=== PATIENT | male | born 1995 | race African-American/Black ===

== ENCOUNTER 2018-10-04 22:44 | Emergency (ER) | payer SELFPAY ==
[~2018-10-04] VITALS: Ht 170.1 cm; Wt 76.2 kg
--- NOTE | ~2018-10-04 | EKG ---
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
[~2018-10-04 22:44] MED LIST: MOTRIN400 MG PO; MOTRIN800 MG PO; NKHM; ZITHROMAX250 MG PO
[2018-10-04 23:19] LABS: BASO % 0.2 % (0.0-1.0); EOS # 0.1 10*3/uL (0.0-0.4); EOS % 0.3 % (1.0-4.0); HEMOGLOBIN 15.4 g/dl (14.0-18.0); LYMPH # 0.9 10*3/uL (1.3-4.4); LYMPH % 6.4 % (27.0-41.0); MEAN CELL VOLUME 83.2 fl (80.0-94.0); MEAN CORPUSCULAR HGB 28.5 pg (27.0-31.0); MEAN CORPUSCULAR HGB CONC 34.2 g/dl (33.0-37.0); MEAN PLATELET VOLUME 10.9 fl (9.6-12.3); MONO # 0.9 10*3/uL (0.1-1.0); NEUT # 12.7 10*3/uL (2.3-7.9); NEUT % 86.8 % (47.0-73.0); PLATELET COUNT AUTOMATED 286 10*3/uL (130-400); RED BLOOD COUNT 5.41 10*6/uL (4.50-5.90); RED CELL DISTRI WIDTH 12.4 % (0-14.5); WHITE BLOOD COUNT 14.7 10*3/uL (4.8-10.8)
[2018-10-04 23:30] LABS: ACT PARTIAL THROMBO TIME 22.1 SECONDS (20.8-31.5)
[2018-10-04 23:46] LABS: ALBUMIN 4.6 gm/dl (3.1-4.5); ALKALINE PHOSPHATASE 68 U/L (45-117); BUN 12 mg/dl (7-24); CHLORIDE 106 mmol/L (98-107); CREATININE 1.26 mg/dL (0.70-1.30); SGOT/AST 27 IU/L (3-35); SGPT/ALT 32 U/L (12-78); SODIUM 141 mmol/L (136-145); TOTAL PROTEIN 8.5 gm/dL (6.4-8.2)
[2018-10-04 23:47] LABS: POTASSIUM 3.9 mmol/L (3.5-5.1); TROPONIN I < 0.015 ng/ml (<0.045)
[2018-10-05] MEDS ORDERED: INDOMETHACIN50 MG PO (00:13)
== END 2018-10-05 00:45 | disposition home or self-care (01) ==
LOC: ED 22:44
PROVIDERS: Emergency Medicine Emergency Medical Services
DX: I31.9 Disease of pericardium, unspecified (principal); F17.210 Nicotine dependence, cigarettes, uncomplicated

== ENCOUNTER 2018-10-10 23:39 | Emergency (ER) | payer SELFPAY ==
[~2018-10-10] VITALS: Ht 172.7 cm; Wt 76.2 kg
--- NOTE | ~2018-10-10 | EKG ---
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 Alicea : 1995 Requested By: FADUMO SAHU Order Number: [id number] Reading MD: Isai Whitney MD Measurements Intervals [place] Rate: 102 P: 0 MS: 84 QRS: 82 QRSD: 80 T: 37 QT: 343 QTc: 447 Interpretive Statements Sinus tachycardia Left atrial enlargement ST elev, probable normal early repol pattern Baseline wander in lead(s) V3,V5 Compared to ECG 10/04/2018 22:50:11 Sinus rhythm no longer present ST (T wave) deviation still present Electronically Signed On 10-11-2018 8:48:19 PST by Isai Whitney MD CM:EKGRPT:ELECTROCARDIOGRAM REPORT [id number] FADUMO TEIXEIRA DRAFT REPORT FADUMO SAHU MD
[~2018-10-10 23:39] MED LIST changes: +INDOMETHACIN50 MG PO
[2018-10-11 00:33] LABS: BASO % 0.5 % (0.0-1.0); EOS % 0.5 % (1.0-4.0); HEMATOCRIT 39.2 % (42.0-52.0); HEMOGLOBIN 13.6 g/dl (14.0-18.0); LYMPH # 2.7 10*3/uL (1.3-4.4); LYMPH % 31.6 % (27.0-41.0); MEAN CORPUSCULAR HGB 28.5 pg (27.0-31.0); MEAN CORPUSCULAR HGB CONC 34.7 g/dl (33.0-37.0); MEAN PLATELET VOLUME 10.5 fl (9.6-12.3); MONO # 0.6 10*3/uL (0.1-1.0); MONO % 7.6 % (3.0-9.0); NEUT % 59.2 % (47.0-73.0); PLATELET COUNT AUTOMATED 339 10*3/uL (130-400); RED BLOOD COUNT 4.78 10*6/uL (4.50-5.90); RED CELL DISTRI WIDTH 12.3 % (0-14.5); WHITE BLOOD COUNT 8.5 10*3/uL (4.8-10.8)
[2018-10-11 00:52] LABS: ALBUMIN 4.3 gm/dl (3.1-4.5); ALKALINE PHOSPHATASE 62 U/L (45-117); BUN 14 mg/dl (7-24); CHLORIDE 107 mmol/L (98-107); CREATININE 1.42 mg/dL (0.70-1.30); POTASSIUM 4.1 mmol/L (3.5-5.1); SGOT/AST 34 IU/L (3-35); SGPT/ALT 30 U/L (12-78); SODIUM 140 mmol/L (136-145); TOTAL PROTEIN 7.9 gm/dL (6.4-8.2)
[2018-10-11 00:55] LABS: ACETAMINOPHEN (TYLENOL) < 2.0 ug/ml (10-30); ETHYL ALCOHOL < 3.0 mg/dl (<3)
[2018-10-11 02:28] LABS: BILIRUBIN NEGATIVE (NEGATIVE); BLOOD TRACE-INTACT (NEGATIVE); CLARITY CLEAR (CLEAR); COLOR YELLOW (YELLOW); GLUCOSE NEGATIVE (NEGATIVE); KETONE 1+ (NEGATIVE); LEUKO ESTERASE NEGATIVE (NEGATIVE); NITRITE NEGATIVE (NEGATIVE); SPECIFIC GRAVITY >= 1.030 (1.005-1.030); UROBILINOGEN 0.2 E.U./dl (0.2-1.0)
[2018-10-11 02:36] LABS: WBC 0-2 wbc/hpf (0-5)
[2018-10-11 02:39] LABS: URINE AMPHETAMINES < 1000 (1000ng/ml); URINE BARBITURATES < 200 (200ng/ml); URINE BENZODIAZEPINES < 200 (200ng/ml); URINE CANNABINOIDS (THC) > 50 (50ng/ml); URINE COCAINE > 300 (300ng/ml); URINE METHADONE < 300 (300ng/ml); URINE OPIATES < 300 (300ng/ml)
[2018-10-11 02:42] LABS: URINE PHENCYCLIDINE < 25 (25ng/ml)
== END 2018-10-11 06:39 | disposition short-term general hospital (02) ==
LOC: ED 23:39
PROVIDERS: Emergency Medicine Emergency Medical Services
DX: R56.9 Unspecified convulsions (principal); F19.10 Other psychoactive substance abuse, uncomplicated; R00.0 Tachycardia, unspecified

== ENCOUNTER 2019-04-25 17:03 | Inpatient (IN) | payer SELFPAY ==
[~2019-04-25] VITALS: Ht 170.1 cm; Wt 65.0 kg
[2019-04-25 17:07] VITALS: BP 104/49
--- NOTE | 2019-04-25 17:44 | NUR ---
THE PT REFUSED AN IV AND AFTER 2 TRIES HE IS REFUSING BLOOD WORK. ANTWAN [place] IS NOTIFIED
--- NOTE | 2019-04-25 17:46 | NUR ---
THE PT WENT TO CT VIA CART
[2019-04-25 18:30] LABS: BASO % 0.4 % (0.0-1.0); EOS # 0.1 10*3/uL (0.0-0.4); HEMOGLOBIN 14.3 g/dl (14.0-18.0); LYMPH # 1.7 10*3/uL (1.3-4.4); LYMPH % 21.3 % (27.0-41.0); MEAN CELL VOLUME 81.2 fl (80.0-94.0); MEAN CORPUSCULAR HGB 28.3 pg (27.0-31.0); MEAN CORPUSCULAR HGB CONC 34.9 g/dl (33.0-37.0); MONO # 0.6 10*3/uL (0.1-1.0); MONO % 7.2 % (3.0-9.0); NEUT # 5.6 10*3/uL (2.3-7.9); PLATELET COUNT AUTOMATED 332 10*3/uL (130-400); RED BLOOD COUNT 5.05 10*6/uL (4.50-5.90); RED CELL DISTRI WIDTH 12.7 % (0-14.5)
[2019-04-25 18:38] VITALS: BP 119/77
[2019-04-25 18:45] LABS: ACT PARTIAL THROMBO TIME 22.9 SECONDS (20.0-32.1); INTERNATIONAL NORM RATIO 0.9 (2.0-3.5)
[2019-04-25 18:49] LABS: ALBUMIN 4.7 gm/dl (3.1-4.5); ALKALINE PHOSPHATASE 71 U/L (45-117); BUN 17 mg/dl (7-24); CHLORIDE 106 mmol/L (98-107); CREATININE 1.25 mg/dL (0.70-1.30); POTASSIUM 4.8 mmol/L (3.5-5.1); SGOT/AST 27 IU/L (3-35); SGPT/ALT 27 U/L (12-78); SODIUM 140 mmol/L (136-145); TOTAL PROTEIN 8.4 gm/dL (6.4-8.2)
[2019-04-25 18:51] LABS: TROPONIN I < 0.015 ng/ml (<0.045)
[2019-04-25 19:41] VITALS: BP 102/66
[2019-04-25 20:28] VITALS: BP 100/62
--- NOTE | 2019-04-25 20:42 | NUR ---
THE PATIENT AND HIS FATHER WERE GIVEN GINERALE TO DRINK.
--- NOTE | 2019-04-25 21:15 | NUR ---
THE PT WAS NOT IN ANY PAIN AND DID NOT WANT THE MOTRIN.
[2019-04-25 22:03] VITALS: BP 106/69
--- NOTE | 2019-04-25 22:31 | NUR ---
REPORT GIVEN TO ARASH LATIF
--- NOTE | 2019-04-26 02:00 | NUR ---
pt resting in bed voices no complaints family in room with pt call light in reach
--- NOTE | 2019-04-26 03:00 | NUR ---
PT REPORTS OBTAIN AT 0300.
--- NOTE | 2019-04-26 03:14 | NUR ---
REPORT TO CHARIS HURT RN
--- NOTE | 2019-04-26 03:43 | NUR ---
PT RESTING QUIRLTY NO ACUTE DISTRESS NOTED. 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 CALL LIGHT INB REACH. FAMILY AT THE BEDSIDE.
[2019-04-26 03:44] VITALS: BP 112/73
[2019-04-26 05:59] LABS: BUN 15 mg/dl (7-24); CHLORIDE 108 mmol/L (98-107); PHOSPHOROUS 3.8 mg/dL (2.5-4.9); SODIUM 141 mmol/L (136-145)
[2019-04-26 06:00] LABS: POTASSIUM 3.6 mmol/L (3.5-5.1)
[2019-04-26 08:00] VITALS: BP 107/83
--- NOTE | 2019-04-26 09:00 | NUR ---
A 24, admitted to , under the services of YOUSIF Shin DO with a diagnosis of CHEST PAIN/RULE OUT ACUTE [place]. Chief complaint is SYNCOPAL EPISODE FOLLOWING CHEST PAIN YESTERDAY. Patient arrived via stretcher from ER. Monitor applied. Initial assessment completed. Vital signs taken and recorded. YOUSIF SHIN DO notified of admission to the unit. Orders received. See assessment for past medical history, medications and allergies. Patient and/or family oriented to unit. [facility]. Clothing/patient valuable form completed. IZZY LEDEZMA
--- NOTE | 2019-04-26 11:48 | NUR ---
DR. SHI NOTIFIED OF CONSULT AND WILL SEE THE PATIENT TODAY.
[2019-04-26 12:00] VITALS: BP 108/66
--- NOTE | 2019-04-26 14:55 | NUR ---
PATIENT STATES HAS TO LEAVE AMA; HAS TO GO TO WORK. DR. HARRINGTON IN TO DISCUSS WITH THE PATIENT WHY THIS IS STRONGLY NOT ADVISED, BUT PATIENT STATES HE MUST GO. PHONE NUMBER FOR RESIDENT CLINIC PROVIDED, PATIENT ALSO ADVISED TO FOLLOW UP ON HIS SEIZURE DISORDER HISTORY WITH A SPECIALIST. PATIENT VERBALIZES UNDERSTANDING, SIGNED AMA PAPER. 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
== END 2019-04-26 14:55 | disposition left against medical advice (07) | DRG 315 ==
LOC: ED 17:03 → EDHOLD 19:13 → 4E 04-26 07:12
PROVIDERS: Nurse Practitioner Family; Student in an Organized Health Care Education/Training Program; ADMIT Emergency Medicine
DX: I95.9 Hypotension, unspecified (principal); I30.9 Acute pericarditis, unspecified; E83.41 Hypermagnesemia; E80.6 Other disorders of bilirubin metabolism; F12.10 Cannabis abuse, uncomplicated; Z53.21 Procedure and treatment not carried out due to patient leaving prior to being seen by health care provider; F17.210 Nicotine dependence, cigarettes, uncomplicated; Z71.6 Tobacco abuse counseling; Z71.51 Drug abuse counseling and surveillance of drug abuser

== ENCOUNTER 2019-08-30 04:09 | Emergency (ER) | payer SELFPAY ==
[~2019-08-30] VITALS: Ht 172.7 cm; Wt 72.6 kg
[2019-08-30 04:45] LABS: BILIRUBIN NEGATIVE (NEGATIVE); BLOOD 1+ (NEGATIVE); CLARITY CLEAR (CLEAR); COLOR YELLOW (YELLOW); GLUCOSE NEGATIVE (NEGATIVE); KETONE NEGATIVE (NEGATIVE); LEUKO ESTERASE NEGATIVE (NEGATIVE); NITRITE NEGATIVE (NEGATIVE); PH 5.5 (5.0-9.0); SPECIFIC GRAVITY >= 1.030 (1.005-1.030); UROBILINOGEN 0.2 E.U./dl (0.2-1.0)
[2019-08-30 04:53] LABS: BACTERIA 1+
[2019-08-30 04:55] LABS: URINE AMPHETAMINES < 1000 (1000ng/ml); URINE BARBITURATES < 200 (200ng/ml); URINE BENZODIAZEPINES < 200 (200ng/ml); URINE CANNABINOIDS (THC) > 50 (50ng/ml); URINE COCAINE > 300 (300ng/ml); URINE METHADONE < 300 (300ng/ml); URINE OPIATES < 300 (300ng/ml)
[2019-08-30 04:58] LABS: URINE PHENCYCLIDINE < 25 (25ng/ml)
[2019-08-30 04:59] LABS: BASO % 0.2 % (0.0-1.0); EOS # 0.1 10*3/uL (0.0-0.4); EOS % 1.2 % (1.0-4.0); HEMATOCRIT 38.3 % (42.0-52.0); HEMOGLOBIN 12.8 g/dl (14.0-18.0); LYMPH # 2.4 10*3/uL (1.3-4.4); LYMPH % 42.2 % (27.0-41.0); MEAN CELL VOLUME 83.6 fl (80.0-94.0); MEAN CORPUSCULAR HGB 27.9 pg (27.0-31.0); MEAN CORPUSCULAR HGB CONC 33.4 g/dl (33.0-37.0); MONO # 0.4 10*3/uL (0.1-1.0); MONO % 7.8 % (3.0-9.0); NEUT # 2.7 10*3/uL (2.3-7.9); NEUT % 48.1 % (47.0-73.0); PLATELET COUNT AUTOMATED 336 10*3/uL (130-400); RED BLOOD COUNT 4.58 10*6/uL (4.50-5.90); RED CELL DISTRI WIDTH 12.2 % (0-14.5); WHITE BLOOD COUNT 5.7 10*3/uL (4.8-10.8)
[2019-08-30 05:16] LABS: ALBUMIN 4.1 gm/dl (3.1-4.5); ALKALINE PHOSPHATASE 61 U/L (45-117); BUN 11 mg/dl (7-24); CHLORIDE 110 mmol/L (98-107); CREATININE 1.47 mg/dL (0.70-1.30); POTASSIUM 3.6 mmol/L (3.5-5.1); SGOT/AST 29 IU/L (3-35); SGPT/ALT 36 U/L (12-78); SODIUM 143 mmol/L (136-145); TOTAL PROTEIN 7.6 gm/dL (6.4-8.2)
[2019-08-30 05:33] LABS: ACETAMINOPHEN (TYLENOL) < 5.0 ug/ml (10-30); ETHYL ALCOHOL < 3.0 mg/dl (<3); TROPONIN I < 0.015 ng/ml (<0.045)
== END 2019-08-30 06:32 | disposition home or self-care (01) ==
LOC: ED 04:09
PROVIDERS: Emergency Medicine Emergency Medical Services
DX: G40.909 Epilepsy, unspecified, not intractable, without status epilepticus (principal); F19.90 Other psychoactive substance use, unspecified, uncomplicated; F12.10 Cannabis abuse, uncomplicated; F14.90 Cocaine use, unspecified, uncomplicated; F17.210 Nicotine dependence, cigarettes, uncomplicated

== ENCOUNTER 2019-12-06 01:53 | Emergency (ER) | payer SELFPAY ==
[~2019-12-06] VITALS: Ht 170.1 cm; Wt 63.5 kg
== END 2019-12-06 02:50 | disposition left against medical advice (07) ==
LOC: ED 01:53
DX: R10.11 Right upper quadrant pain (principal); R11.0 Nausea; Z91.030 Bee allergy status; Z87.891 Personal history of nicotine dependence

== ENCOUNTER 2022-05-30 17:03 | Emergency (ER) | payer SELFPAY ==
[~2022-05-30] VITALS: Ht 170.1 cm; Wt 65.8 kg
[2022-05-30 18:02] LABS: BASO % 0.5 % (0.0-1.0); EOS % 0.7 % (1.0-4.0); HEMATOCRIT 37.2 % (42.0-52.0); LYMPH # 1.5 10*3/uL (1.3-4.4); LYMPH % 24.5 % (27.0-41.0); MEAN CELL VOLUME 81.9 fl (80.0-94.0); MEAN CORPUSCULAR HGB CONC 34.1 g/dl (33.0-37.0); MEAN PLATELET VOLUME 10.4 fl (9.6-12.3); MONO # 0.4 10*3/uL (0.1-1.0); MONO % 5.8 % (3.0-9.0); NEUT # 4.2 10*3/uL (2.3-7.9); NEUT % 68.3 % (47.0-73.0); PLATELET COUNT AUTOMATED 341 10*3/uL (130-400); RED BLOOD COUNT 4.54 10*6/uL (4.50-5.90); RED CELL DISTRI WIDTH 11.9 % (0-14.5); WHITE BLOOD COUNT 6.1 10*3/uL (4.8-10.8)
[2022-05-30 18:24] LABS: ACT PARTIAL THROMBO TIME 26.8 SECONDS (20.0-32.1)
[2022-05-30 18:28] LABS: ALKALINE PHOSPHATASE 66 U/L (45-117); BUN 12 mg/dl (7-24); CHLORIDE 110 mmol/L (98-107); CREATININE 1.03 mg/dL (0.70-1.30); LIPASE 127 U/L (73-393); POTASSIUM 3.5 mmol/L (3.5-5.1); SGOT/AST 17 IU/L (3-35); SGPT/ALT 32 U/L (12-78); SODIUM 143 mmol/L (136-145); TOTAL PROTEIN 7.2 gm/dL (6.4-8.2)
[2022-05-30 19:42] LABS: BILIRUBIN Negative (Negative); BLOOD Negative (Negative); CLARITY Clear (Clear); COLOR Yellow (Yellow); GLUCOSE Negative (Negative); KETONE Trace (Negative); LEUKO ESTERASE Negative (Negative); NITRITE Negative (Negative); PH 7.5 (4.5-8.0); SPECIFIC GRAVITY 1.025 (1.001-1.030)
[2022-05-30 19:48] LABS: URINE AMPHETAMINES > 1000 (1000ng/ml); URINE BARBITURATES < 200 (200ng/ml); URINE BENZODIAZEPINES < 200 (200ng/ml); URINE CANNABINOIDS (THC) > 50 (50ng/ml); URINE COCAINE < 300 (300ng/ml); URINE METHADONE < 300 (300ng/ml); URINE OPIATES < 300 (300ng/ml)
[2022-05-30 19:51] LABS: BACTERIA 1+; EPITHELIAL CELLS 0-2; HYALINE CAST 0-2; WBC 0-2 wbc/hpf (0-5)
[2022-05-30 19:52] LABS: URINE PHENCYCLIDINE < 25 (25ng/ml)
[2022-05-30] MEDS ORDERED: VIBRAMYCIN100 MG PO (20:31)
== END 2022-05-30 20:53 ==
LOC: ED 17:03
PROVIDERS: Physician Assistant
DX: R07.9 Chest pain, unspecified (principal); Z91.030 Bee allergy status; Z87.891 Personal history of nicotine dependence

== ENCOUNTER 2022-12-26 12:55 | Emergency (ER) | payer SELFPAY ==
[~2022-12-26] VITALS: Wt 74.8 kg
[~2022-12-26 12:55] MED LIST changes: +VIBRAMYCIN100 MG PO
[2022-12-26] MEDS ORDERED: [UNRECOGNIZED DRUG - REMARK] PO (13:03)
== END 2022-12-26 14:26 | disposition home or self-care (01) ==
LOC: ED 12:55
DX: R56.9 Unspecified convulsions (principal); Z91.030 Bee allergy status; F17.200 Nicotine dependence, unspecified, uncomplicated; F12.90 Cannabis use, unspecified, uncomplicated; F14.90 Cocaine use, unspecified, uncomplicated